=== PATIENT | female | born 1990 | race Asian ===

== ENCOUNTER 2018-01-12 15:20 | Emergency (ER) | payer MEDICAID ==
[~2018-01-12] VITALS: Ht 167.6 cm; Wt 62.7 kg
[~2018-01-12 15:20] MED LIST: ACET1TAB12 PO; NOCURR
[2018-01-12] MEDS ORDERED: LIDOCAINE HCL 1% 10 ML VIAL INJ ONE (15:30)
[2018-01-12 16:33] VITALS: BP 128/80
== END 2018-01-12 16:38 | disposition home or self-care (01) ==
LOC: EMS 15:21
DX: S61.217A Laceration without foreign body of left little finger without damage to nail, initial encounter (principal); W45.8XXA Other foreign body or object entering through skin, initial encounter; Y93.89 Activity, other specified; Y92.89 Other specified places as the place of occurrence of the external cause; Y99.8 Other external cause status
CPT/HCPCS: 12001; 99283; J3490

== ENCOUNTER 2018-01-14 11:07 | Emergency (ER) | payer MEDICAID ==
[~2018-01-14] VITALS: Ht 170.2 cm; Wt 55.9 kg
[2018-01-14] MEDS ORDERED: BACITRACIN 0.9 GM PACKET OINTMENT TP ONE (12:15)
[2018-01-14 12:23] VITALS: BP 123/77
== END 2018-01-14 12:43 | disposition home or self-care (01) ==
LOC: EMS 11:08
DX: Z48.00 Encounter for change or removal of nonsurgical wound dressing (principal); Z88.1 Allergy status to other antibiotic agents
CPT/HCPCS: 99282